=== PATIENT | female | born 1980 | race Two or more races ===

== ENCOUNTER 2024-02-07 12:20 | Emergency (ER) | payer MEDICAID, OTHER ==
[~2024-02-07] VITALS: Ht 160 cm; Wt 75.0 kg
[2024-02-07 13:37] VITALS: TEMP 98.2
[2024-02-07] MEDS: IBUPROFEN 600 MG TAB PO ONE (15:10)
[2024-02-07 15:22] VITALS: PULSE 88; RESP 18; O2SAT 98
[2024-02-07] MEDS ORDERED: CYCL-837 PO (16:01)
[2024-02-07] MEDS ORDERED: IBUP1TAB5 PO (16:01)
[2024-02-07 16:10] VITALS: BP 130/72; PULSE 55; RESP 16; O2SAT 99
== END 2024-02-07 16:15 | disposition home or self-care (01) ==
LOC: ER 12:20
DX: S46.912A Strain of unspecified muscle, fascia and tendon at shoulder and upper arm level, left arm, initial encounter (principal); S60.012A Contusion of left thumb without damage to nail, initial encounter; M54.2 Cervicalgia; Y09 Assault by unspecified means; Y93.89 Activity, other specified; Y92.89 Other specified places as the place of occurrence of the external cause; Y99.8 Other external cause status
CPT/HCPCS: 73030; 73140